=== PATIENT | male | born 1990 | race Caucasian/White ===

== ENCOUNTER 2019-12-05 01:12 | Emergency (ER) | payer MEDICARE, MEDICAID ==
[~2019-12-05] VITALS: Ht 177.8 cm; Wt 80.0 kg
[2019-12-05] MEDS ORDERED: LORAZEPAM 2MG/ML CPJ IM STA (01:21)
[2019-12-05] MEDS ORDERED: HALOPERIDOL LACTATE 5MG/ML VIAL IM STA (01:21)
[2019-12-05 02:04] LABS: BASOPHILS % 0.7 % (0.0-2.0); EOSINOPHILS % 0.9 % (0.0-5.0); HEMATOCRIT. 51.5 % (42.0-52.0); HEMOGLOBIN. 17.6 g/dL (14.0-18.0); LYMPHOCYTES % 45.2 % (20.0-50.0); MEAN CORPUSCULAR HEMOGLOBIN 30.3 pg (28.0-32.0); MEAN CORPUSCULAR VOLUME 88.9 fL (80.0-94.0); MEAN PLATELET VOLUME 9.8 fl (7.4-10.4); MONOCYTES % 7.4 % (2.0-8.0); NEUTROPHILS % 45.8 % (40.0-76.0); PLATELET 56 x1000/uL (130-400); RED CELL DISTRIBUTION WIDTH 14.2 % (11.6-14.6)
[2019-12-05 02:13] LABS: CHLORIDE 108 mEq/L (98-107)
[2019-12-05 02:21] LABS: CLARITY URINE CLEAR (CLEAR); COLOR URINE YELLOW (YELLOW); KETONES URINE NEGATIVE (NEGATIVE); LEUKOCYTE ESTERASE URINE NEGATIVE (NEGATIVE); NITRITE URINE NEGATIVE (NEGATIVE); OCCULT BLOOD URINE NEGATIVE (NEGATIVE); PROTEIN URINE NEGATIVE (NEGATIVE); SPECIFIC GRAVITY URINE 1.006 (1.005-1.030); UROBILINOGEN URINE 0.2 E.U./dL (0.2-1.0)
[2019-12-05 02:31] LABS: *AMPHETAMINES SCREEN URINE NEGATIVE (NEGATIVE); *BARBITURATES SCREEN URINE NEGATIVE (NEGATIVE); *BENZODIAZEPINES SCREEN URINE NEGATIVE (NEGATIVE); *COCAINE SCREEN URINE NEGATIVE (NEGATIVE); METHADONE URINE SCREEN NEGATIVE (NEGATIVE); OPIATES URINE SCREEN NEGATIVE (NEGATIVE)
[2019-12-05 02:32] LABS: CANNABINOID URINE SCREEN PRESUMTIVE POSITIVE (NEGATIVE); PHENCYCLIDINE URINE SCREEN NEGATIVE (NEGATIVE)
[2019-12-05 02:39] LABS: ETHANOL BLOOD 373 mg/dL
[2019-12-05] MEDS ORDERED: LORAZEPAM 2MG/ML CPJ ONE (08:12)
[2019-12-05] MEDS ORDERED: OLANZAPINE 10 MG/VIAL IM ONE (08:15)
[2019-12-05] MEDS ORDERED: LORAZEPAM 2MG/ML CPJ IM ONE (08:15)
[2019-12-05] MEDS ORDERED: SODIUM CHLORIDE 0.9% 1,000 ML IV ONE (08:50)
[2019-12-05 13:15] VITALS: BP 128/75
== END 2019-12-05 13:15 | disposition home or self-care (01) ==
LOC: ER 01:38 → EDBD 01:38 → ER 13:15
DX: T40.7X1A Poisoning by cannabis (derivatives), accidental (unintentional), initial encounter (principal); F10.129 Alcohol abuse with intoxication, unspecified; G93.40 Encephalopathy, unspecified; R00.0 Tachycardia, unspecified; Y90.8 Blood alcohol level of 240 mg/100 ml or more
CPT/HCPCS: 36415; 80053; 80305; 80307; 80320; 80329; 81003; 85025; 93005; 96372; 99285; J1630; J2060; J3490; J7030; G0480